=== PATIENT | male | born 1980 | race Hispanic/Latino ===

== ENCOUNTER 2025-05-19 11:15 | Emergency (ER) | payer BC ==
[~2025-05-19] VITALS: Ht 180.3 cm; Wt 108.9 kg
[2025-05-19 11:32] VITALS: BP 135/74; PULSE 90; RESP 14; TEMP 98.1; O2SAT 97
[2025-05-19] MEDS: HYDROcodone/APAP 5/325 1 TAB TABLET PO ONE (11:51)
[2025-05-19] MEDS ORDERED: KETO10TA2 PO (11:54)
--- NOTE | 2025-05-19 11:54 | ERN ---
General Chief Complaint: FOOT INJURY/PAIN Stated Complaint: BILATERAL FEET PLANTAR DISCOMFORT Time Seen by MD: 11:17 Time Seen by Midlevel: 11:17 Source: patient History of Present Illness Initial Comments 45-year-old male presenting to the ER for plantar pain that started approximately 2-3 months ago when he started his new job at [employer]. The pain is worse in the morning and normally gets better throughout the day. Denies any direct injury or trauma. The patient has been taking Tylenol and Motrin [id number] with little to no relief. He has a attempted to change shoes and Allergies: Coded Allergies: No Known Allergies (Unverified Allergy, Unknown, 05/19/25) Home Meds Active Scripts Ketorolac Tromethamine (Ketorolac Tromethamine) 10 Mg Tablet, 1 TAB PO TID for pain for 5 Days, #15 TAB 0 Refills Prov:MANUELITO KEY 05/19/25 Past Medical History Past Medical History: No Pertinent History Past Surgical History: None ROS Dictation CONSTITUTIONAL: Negative except for HPI HEAD/FACE: Negative except for HPI EENT: Negative except for HPI RESPIRATORY: Negative except for HPI GASTROINTESTINAL/ABDOMINAL: Negative except for HPI GENITOURINARY: Negative except for HPI MUSCULOSKELETAL: Negative except for HPI INTEGUMENTARY: Negative except for HPI NEUROLOGICAL/PSYCH: Negative except for HPI HEMATOLOGIC/LYMPHATIC: Negative except for HPI All Systems Negative, Except as noted above. 13 point review of systems assessed and all negative except for above. Physical Exam Physical Exam Dictation PHYSICAL EXAM: GENERAL: alert,, awake oriented x 3 HEENT: EOMI, Sclera non icteric, moist mucosa NECK: Supple, no JVD, trachea midline LUNGS: Clear breath sounds bilaterally. No wheezes HEART: Regular rate and rhythm. Normal S1 and S2, without murmurs ABD: Abdomen soft, nontender. Bowel sounds present EXT: No clubbing or cyanosis, NEURO: Alert and oriented to person, follows commands MDM MDM: 45-year-old male presenting to the ER for plantar pain that started approximately 2-3 months ago when he started his new job at [employer]. The pain is worse in the morning and normally gets better throughout the day. Denies any direct injury or trauma. The patient has been taking Tylenol and Motrin [id number] with little to no relief. He has a attempted to change shoes and soles. On physical examination foot examination is unremarkable. No signs of external trauma no evidence of cellulitis or infection. Symptoms most likely related to plantar fasciitis based on history and physical examination. We will refer to Dr. Casillas for further evaluation outpatient Differential diagnosis: Plantar fasciitis, fracture, contusion your, musculoskeletal pain There are no social concerns with this patient. Prescription drug management Prescriptions will include: Toradol Medical management and examination interpretation discussions were had by me with other qualified healthcare professionals as indicated for the patient's care. ED Course Orders Procedure Category Date Status Time Hydrocodone/Apap PHA 05/19/25 Complete 5/325 ([place] 5/325mg) 12:00 Current Medications Medications (Trade) Dose Ordered Sig/Fernando Route PRN Reason Start Time Stop Time Status Last Admin Dose Admin Acetaminophen/ Hydrocodone Bitart (NORco 5/325MG) 1 tab ONCE ONCE PO 05/19/25 12:00 05/19/25 12:01 DC 05/19/25 11:51 Vital Signs Date Time Temp Pulse Resp B/P (MAP) Pulse Ox O2 Delivery O2 Flow Rate FiO2 05/19/25 11:32 98.1 90 14 135/74 97 Room Air* 0 21 05/19/25 11:17 98.1 90 14 135/74 97 Room Air 0 DX & DISP Disposition: Discharge Departure Impression: Primary Impression: Plantar fasciitis, bilateral Condition: Stable Scripts Ketorolac Tromethamine (Ketorolac Tromethamine) 10 Mg Tablet 1 TAB PO TID for pain for 5 Days, #15 TAB 0 Refills Prov: MANUELITO KEY 05/19/25 Referrals: GÉNESIS CASILLAS DPM I have reviewed the case, and I agree with, Diagnosis and Plan I performed the substantive portion of the visit. I have reviewed and personally made and approve the management plan that is documented in the note by myself or the CHRISTA. I acknowledge for responsibility for the patient's management plan. MANUELITO KEY May 19, 2025 11:54 NEENA PIZARRO DO May 19, 2025 18:41
== END 2025-05-19 12:11 | disposition home or self-care (01) ==
LOC: EDH 11:15
DX: M72.2 Plantar fascial fibromatosis (principal); Z79.899 Other long term (current) drug therapy
CPT/HCPCS: 99283